=== PATIENT | female | born 1970 | race American Indian/Alaskan Native ===

== ENCOUNTER 2017-10-28 17:39 | Emergency (ER) | payer OTHER ==
[2017-10-28 17:47] VITALS: BP 124/86; PULSE 90; RESP 16; TEMP 98.1; O2SAT 98
--- NOTE | 2017-10-28 18:40 | C.PDOC ---
History Of Present Illness 46 year old female presents to the ED for evaluation of intermittent pain and swelling to her bilateral knees which began one month ago. Patient admits her job requires lots of walking. She denies direct trauma/injury to the area, deformity, weakness, or sensorivascular deficits. Time Seen by Provider: 10/28/17 17:52 Chief Complaint (Nursing): Lower Extremity Problem/Injury History Per: Patient History/Exam Limitations: no limitations Onset/Duration Of Symptoms: Intermittent Episodes, Other (1 month ) Current Symptoms Are (Timing): Still Present Additional History Per: Patient - Knee Description Of Injury: denies: Fell, Struck With Object, Struck Against Object Past Medical History Reviewed: Historical Data, Nursing Documentation, Vital Signs Vital Signs: Last Vital Signs Temp 98.1 F 10/28/17 17:45 Pulse 90 10/28/17 17:45 Resp 16 10/28/17 17:45 BP 124/86 10/28/17 17:45 Pulse Ox 98 10/28/17 18:43 - Medical History PMH: No Chronic Diseases Surgical History: No Surg Hx Family History: States: Unknown Family Hx - Social History Hx Alcohol Use: No Hx Substance Use: No Review Of Systems Musculoskeletal: Positive for: Other (pain and swelling to bilateral knees ) Neurological: Negative for: Weakness, Numbness Physical Exam - Physical Exam Appears: Well, Non-toxic, No Acute Distress Skin: Normal Color, Warm, Dry, No Ecchymosis Eye(s): bilateral: PERRL Extremity: Normal ROM (B/L LEs), Tenderness (mild, over anterior aspects of bilateral knees ), No Calf Tenderness, Capillary Refill (less than 2 seconds ), No Deformity, Other (mild edema noted to medial aspect of right knee, no effusion.) Neurological/Psych: Oriented x3, Normal Speech, Normal Cognition, Normal Motor, Normal Sensation, Normal Reflexes ED Course And Treatment O2 Sat by Pulse Oximetry: 98 (on RA) Pulse Ox Interpretation: Normal - Other Rad B/L knees X-Ray: Interpreted by Me, Viewed By Me Interpretation: (+) mild DJD R>L, no acute fx or dislocation Progress Note: XR Bilateral knees ordered and reviewed. On re-eval, pt is afebrile, hemodynamicalys table. Non-toxic. Ambulatory in ED with stable giat. B/L Knees: mild anterior tenderness, mild edema medial aspect Right knee , no palpable effusion, no skin changes. No deformity, FAROM, no neurovascular deficits. Imaging review (+) R>L mild DJD, no acute fx or dislocation. Pt advised. ref. to f/u with ortho in 2-3 days for re-eavl. return if any new changes. Disposition Counseled Patient/Family Regarding: Studies Performed, Diagnosis, Need For Followup, Rx Given - Disposition Referrals: [facility] [Outside] Alicia Jacobson MD [Staff Provider] - Disposition: HOME/ ROUTINE Disposition Time: 18:45 Condition: STABLE Additional Instructions: Take medication as prescribed Stanley wrap to B/L knees as need for apin follow up with PMD, Orthopedist in 2-3 days for re-evaluation. return to ED if any worsening or new changes. 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 - Scribe Statement The provider has reviewed the documentation as recorded by the Scribe (Rae Nation) All medical record entries made by the Scribe were at my direction and personally dictated by me. I have reviewed the chart and agree that the record accurately reflects my personal performance of the history, physical exam, medical decision making, and the department course for this patient. I have also personally directed, reviewed, and agree with the discharge instructions and disposition.
--- NOTE | 2017-10-29 10:17 | RAD ---
PROCEDURE: Bilateral Knee Radiographs. HISTORY: pain COMPARISON: None available. TECHNIQUE: Two radiographs of each knee have been submitted for interpretation. FINDINGS: No acute fracture or destructive bony lesion identified. Degenerative joint space narrowing and cortical sclerosis identified in the medial femorotibial compartment greater than patellofemoral and lateral femorotibial compartments. Osteophyte development is prominent the right greater than left medial femorotibial compartments. Local soft tissues appear grossly nonfocal although mild suprapatellar bursa effusions are identified at the left greater than right. IMPRESSION: Moderate bilateral tricompartmental osteoarthritis sever greater the right than left sides. No acute fracture or dislocation identified.
== END 2017-10-28 19:27 | disposition home or self-care (01) ==
LOC: C.ER 17:39
DX: M25.562 Pain in left knee (principal); M25.561 Pain in right knee

== ENCOUNTER 2017-10-31 17:38 | Emergency (ER) | payer OTHER ==
[2017-10-31 17:48] VITALS: BP 130/89; PULSE 69; RESP 15; TEMP 98.6; O2SAT 100
--- NOTE | 2017-11-04 12:08 | CARD ---
APPROVED REPORT EKG Measurement Heart [id number] LA [id number] <Conclusion> Normal sinus rhythm Normal ECG
== END 2017-10-31 18:17 | disposition left against medical advice (07) ==
LOC: C.ER 17:38
DX: Z02.89 Encounter for other administrative examinations (principal); R07.89 Other chest pain
CPT/HCPCS: 93005; LWBS0

== ENCOUNTER 2017-11-03 02:33 | Emergency (ER) | payer OTHER ==
[2017-11-03] MEDS ORDERED: Sodium Chloride 0.9% 1,000 ML IV STA (03:00)
--- NOTE | 2017-11-03 03:14 | C.PDOC ---
History Of Present Illness 46 year old presents to the ED c/o intermittent dizziness and headache for the 2 -3 weeks. Patient reports today she woke to help her daughter with her baby and she started feeling dizzy and nauseous. Patient decided to come to the ED for evaluation. Patient denies injury, fall, trauma, vomit, diarrhea, weakness, numbness. Time Seen by Provider: 11/03/17 02:45 Chief Complaint (Nursing): Dizziness/Lightheaded History Per: Patient History/Exam Limitations: no limitations Onset/Duration Of Symptoms: Other (2-3 weeks) Current Symptoms Are (Timing): Still Present Number Of Syncopal Episodes: 1 Activity At Onset Of Symptoms: Standing Associated Symptoms Preceding Syncopal Episode: No Predromal Symptoms (Sudden Onset) Seizure Or Post-ictal Symptoms: None Fall Associated With With Symptoms: No Severity: None Recent travel outside of the [place]: No Additional History Per: Patient Past Medical History Reviewed: Historical Data, Nursing Documentation, Vital Signs Vital Signs: Last Vital Signs Temp 98.5 F 11/03/17 02:39 Pulse 79 11/03/17 02:39 Resp 20 11/03/17 02:39 BP 132/72 11/03/17 02:39 Pulse Ox 96 11/03/17 05:29 - Medical History PMH: No Chronic Diseases Surgical History: No Surg Hx Family History: States: Unknown Family Hx - Social History Hx Alcohol Use: No Hx Substance Use: No - Immunization History Hx Tetanus Toxoid Vaccination: No Hx Influenza Vaccination: Yes Hx Pneumococcal Vaccination: No Review Of Systems Constitutional: Negative for: Fever, Chills Eyes: Negative for: Vision Change Cardiovascular: Negative for: Chest Pain, Palpitations Respiratory: Negative for: Shortness of Breath Gastrointestinal: Positive for: Nausea. Negative for: Vomiting Skin: Negative for: Rash Neurological: Positive for: Dizziness. Negative for: Weakness, Numbness, Headache Physical Exam - Physical Exam Appears: Non-toxic, No Acute Distress Skin: Normal Color, Warm, Dry Head: Atraumatic, Normacephalic Eye(s): bilateral: Normal Inspection, PERRL, EOMI Oral Mucosa: Moist Neck: Normal ROM, No Midline Cervical Tenderness, Supple Chest: Symmetrical Cardiovascular: Rhythm Regular Respiratory: Normal Breath Sounds, No Rales, No Rhonchi, No Wheezing Gastrointestinal/Abdominal: Soft, No Tenderness, No Guarding, No Rebound Extremity: Normal ROM, No Tenderness, No Swelling Neurological/Psych: Oriented x3, Normal Speech, Normal Motor, Normal Sensation Gait: Steady ED Course And Treatment - Laboratory Results Result Diagrams: 11/03/17 03:59 11/03/17 03:59 ECG Interpretation: No Acute Changes Rate From EC O2 Sat by Pulse Oximetry: 96 (ON RA) Pulse Ox Interpretation: Normal - CT Scan/US CT head Other Rad Studies (CT/US): Read By Radiologist, Radiology Report Reviewed CT/US Interpretation: Name: RICHARD RAY Age: 46Years F Date: 11/03/2017. Requesting Physician: Lu Rosenberg PA-C : 1970. [facility] Procedure Ordered As Accession Number of Images. CT HEAD WO CT HEAD W O CONTRAST [id number]. Provided Clinical History: dizzy/headache. EXAM: CT Head Without Intravenous Contrast. EXAM DATE/TIME: 11/03/2017 3:01 AM. CLINICAL HISTORY: 46 years old, female; Signs and symptoms; Dizziness; Additional info: Dizzy/headache. TECHNIQUE: Axial computed tomography images of the head/brain without intravenous contrast. All CT scans at this facility use at least one of these dose optimization techniques: automated. exposure control; mA and/or kV adjustment per patient size (includes targeted exams where dose is. matched to clinical indication); or iterative reconstruction. Coronal and sagittal reformatted images were created and reviewed. COMPARISON: No relevant prior studies available. FINDINGS: Brain: Normal. No hemorrhage. No significant white matter disease. No edema. Ventricles: Normal. No ventriculomegaly. Bones/joints: Normal. No acute fracture. Sinuses: Normal as visualized. No acute sinusitis. Mastoid air cells: Normal as visualized. No mastoid effusion. Soft tissues: Normal. IMPRESSION: No definite acute intracranial abnormality. Thank you for allowing us to participate in the care of your patient. Dictated and Authenticated by: En Mendes MD. 11/03/2017 4:05 AM Eastern Time ([place] & [place]) Progress Note: Plan: - CT head. - EKG. - Labs. - Antivert 25 mg PO. - IV fluids. - Orthostatic Vitals Signs Reassessment Condition: Improved (no more c/o dizziness, requesting to be d/c home) Disposition - Disposition Referrals: Shaik Gomes MD [Staff Provider] - Stefan Garduno MD [Staff Provider] - Disposition: HOME/ ROUTINE Disposition Time: 05:28 Condition: STABLE Additional Instructions: Follow up with your PMD and Neurologist . Return to ED if feel worse. 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 - Scribe Statement The provider has reviewed the documentation as recorded by the Scribe Nuno Kwok All medical record entries made by the Scribe were at my direction and personally dictated by me. I have reviewed the chart and agree that the record accurately reflects my personal performance of the history, physical exam, medical decision making, and the department course for this patient. I have also personally directed, reviewed, and agree with the discharge instructions and disposition.
[2017-11-03 04:03] LABS: BASO # 0.1 K/uL (0.0-0.2); BASO % 1.2 % (0.0-2.0); EOS # 0.1 K/uL (0.0-0.7); EOS % 1.8 % (0.0-4.0); LYMPH % 42.8 % (20.0-40.0); MEAN CELL VOLUME 83.8 fL (81.0-99.0); MEAN CORPUSCULAR HEMOGLOBIN 27.1 pg (27.0-31.0); MEAN CORPUSCULAR HGB CONC 32.4 g/dL (33.0-37.0); MEAN PLATELET VOLUME 10.2 fL (7.2-11.7); MONO # 0.8 K/uL (0.0-0.8); MONO % 12.1 % (0.0-10.0); NEUT # 2.9 K/uL (1.8-7.0); NEUT % 42.1 % (50.0-75.0); RBC 5.16 Mil/uL (3.80-5.20); RED CELL DISTRIBUTION WIDTH 15.3 % (11.5-14.5)
[2017-11-03 04:10] LABS: ALT/SGPT 36 U/L (9-52); AST/SGOT 34 U/L (14-36); BLOOD UREA NITROGEN 16 mg/dL (7-17); CALCIUM 9.1 mg/dl (8.6-10.4); GFR AFRICAN-AMERICAN > 60; GFR NON-AFRICAN AMERICAN > 60
[2017-11-03 05:40] VITALS: BP 134/78; PULSE 76; RESP 16; TEMP 98.7; O2SAT 100
--- NOTE | 2017-11-03 08:26 | CT ---
PROCEDURE: CT HEAD WITHOUT CONTRAST. HISTORY: dizzy/headache COMPARISON: None available. TECHNIQUE: Axial computed tomography images were obtained through the head/brain without intravenous contrast. Radiation dose: Total exam DLP = 813 mGy-cm. This CT exam was performed using one or more of the following dose reduction techniques: Automated exposure control, adjustment of the mA and/or kV according to patient size, and/or use of iterative reconstruction technique. FINDINGS: HEMORRHAGE: No intracranial hemorrhage. BRAIN: No mass effect or edema. No atrophy or chronic microvascular ischemic changes. VENTRICLES: Unremarkable. No hydrocephalus. CALVARIUM: Unremarkable. PARANASAL SINUSES: Unremarkable as visualized. No significant inflammatory changes. MASTOID AIR CELLS: Unremarkable as visualized. No inflammatory changes. OTHER FINDINGS: None. IMPRESSION: No acute intracranial abnormality. If focal neurologic deficit persists, consider MRI. These findings were preliminarily reported at 4:05 a.m. on 11/03/[address] En Mendes from [facility].
--- NOTE | 2017-11-04 19:39 | CARD ---
APPROVED REPORT EKG Measurement Heart [id number] ND 160P48 [id number] <Conclusion> Normal sinus rhythm Normal ECG
== END 2017-11-03 05:39 | disposition home or self-care (01) ==
LOC: C.ER 02:33
DX: R42 Dizziness and giddiness (principal)
CPT/HCPCS: 70450; 80053; 85025; 93005; 99285; J7030